=== PATIENT | female | born 1940 | race Caucasian/White ===

== ENCOUNTER 2019-07-01 09:47 | Emergency (ER) | payer OTHER ==
[2019-07-01 10:31] VITALS: PULSE 84; TEMP 97.8
--- NOTE | 2019-07-01 10:44 | PDOC ---
History of Present Illness - History of Present Illness Initial Comments: The pt is an 79F w/ a history of COPD (2L NC), CLL who presents for evaluation of several months of productive cough and 2 days of body aches. She endorses chills at home. She denies fevers, SOB, worsening MATIAS, abdominal pain, N/V/C/D, dysuria, hematuria, or changes in sensation. She endorses receiving the flu vaccine this year She was also evaluated by Pulmonology and GI and is s/p 2 rounds of azithromycin 07/01/19 11:06 <Ck Tipton - Last Filed: 07/01/19 12:04> <Lakshmi Richardson - Last Filed: 07/01/19 12:11> - General Chief Complaint: Respiratory Stated Complaint: COPD Past History - Past Medical History Anemia: No Asthma: No Cancer: No Cardiac Disorders: No CVA: No COPD: Yes CHF: No Dementia: No Diabetes: No GI Disorders: No Disorders: No HTN: No Hypercholesterolemia: No Liver Disease: No Seizures: No Thyroid Disease: No - Surgical History Abdominal Surgery: No Appendectomy: No Cardiac Surgery: No Cholecystectomy: No Lung Surgery: No Neurologic Surgery: No Orthopedic Surgery: Yes (RIGHT FOOT SURGERY) - Psycho Social/Smoking Cessation Hx Smoking History: Former smoker Have you smoked in the past 12 months: No If you are a former smoker, when did you quit?: 23YRS AGO Information on smoking cessation initiated: No Hx Alcohol Use: Yes (1 GLASS OF WINE WITH DINNER) Drug/Substance Use Hx: No Substance Use Type: None Hx Substance Use Treatment: No <Ck Tipton - Last Filed: 07/01/19 12:04> <Lakshmi Richardson - Last Filed: 07/01/19 12:11> - Past Medical History Allergies/Adverse Reactions: Allergies Allergy/AdvReac Type Severity Reaction Status Date / Time No Known Drug Allergies Allergy Verified 07/01/19 10:03 Home Medications: Ambulatory Orders Budesonide/Formeterol Fumarate [SYMBICORT 80/4.5mcg -] 2 inh IH BID 10/13/12 Calcium Carbonate/Vitamin D3 [Calcarb 600 with Vit D Tab] 1 each PO DAILY Multivit-Min/FA/Lycopene/Lut [Centrum Silver Tablet] 1 each PO DAILY 10/13/12 Tiotropium [employer] [Spiriva] 1 inh IH DAILY 10/13/12 Oxycodone HCl/Acetaminophen [Percocet 5-325 mg Tablet] 1 - 2 tab PO Q6H PRN #0 tablet 10/23/12 Oseltamivir Phosphate [Tamiflu -] 75 mg PO BID #10 capsule 07/01/19 Review of Systems - Review of Systems Able to Perform ROS?: Yes Comments:: GENERAL/CONSTITUTIONAL: No fever. No weakness HEAD, EYES, EARS, NOSE AND THROAT: No change in vision. No change in hearing. No sore throat CARDIOVASCULAR: No chest pain RESPIRATORY: +cough GASTROINTESTINAL: No nausea, vomiting, diarrhea or constipation GENITOURINARY: No dysuria, frequency, or change in urination MUSCULOSKELETAL: No joint or muscle swelling or pain. No neck or back pain SKIN: No rash NEUROLOGIC: No headache, vertigo, loss of consciousness, or change in strength/ sensation ENDOCRINE: No increased thirst. No abnormal weight change ALLERGIC/IMMUNOLOGIC: No hives or skin allergy 07/01/19 10:44 Is the patient limited Yi proficient: No <Ck Tipton - Last Filed: 07/01/19 12:04> *Physical Exam - Vital Signs Last Vital Signs Temp Pulse Resp BP Pulse Ox 97.8 F 84 18 104/88 100 07/01/19 10:29 07/01/19 10:42 07/01/19 10:29 07/01/19 10:29 07/01/19 10:42 - Physical Exam GENERAL: Awake, alert, and oriented to person/place/time, in no acute distress HEAD: No signs of trauma, normocephalic, atraumatic EYES: PERRLA, EOMI, sclera anicteric, conjunctiva clear ENT: Hearing grossly normal, nares patent, oropharynx clear without exudates. Moist mucosa LUNGS: No distress, speaks in full sentences, clear to auscultation bilaterally HEART: Regular rate and rhythm, normal S1 and S2, no murmurs appreciated, peripheral pulses normal and equal bilaterally ABDOMEN: Soft, nontender, normoactive bowel sounds. No guarding, no rebound EXTREMITIES: Normal inspection, Normal range of motion, no edema. No clubbing or cyanosis NEUROLOGICAL: Cranial nerves II through XII grossly intact. Normal speech, normal gait, no focal sensorimotor deficits SKIN: Warm, Dry 07/01/19 10:44 <Ck Tipton - Last Filed: 07/01/19 12:04> - Vital Signs Last Vital Signs Temp Pulse Resp BP Pulse Ox 97.8 F 84 18 104/88 100 07/01/19 10:29 07/01/19 10:46 07/01/19 10:29 07/01/19 10:29 07/01/19 10:46 <Lakshmi Richardson - Last Filed: 07/01/19 12:11> ED Treatment Course - RADIOLOGY Chest X-Ray Result: No Infiltrates Radiograph Interpretation: 07/01/19 12:11 Interpreted by ED Physician: CXR (2 view): no acute abnormality: no infiltrates , bones appear intact and structures normal alignment, cardiac silhouette within normal limits. no free air under diaphragm, no pneumothorax. - Medications Given in the ED: ED Medications Discontinued Medications Generic Name Dose Route Start Last Admin Trade Name Freq PRN Reason Stop Dose Admin Albuterol/Ipratropium 1 amp 07/01/19 11:15 07/01/19 11:21 Duoneb - NEB 07/01/19 11:16 1 amp Q15M KAYE Administration <Lakshmi Richardson - Last Filed: 07/01/19 12:11> Medical Decision Making - Medical Decision Making The pt is an 79F w/ a history of COPD and CLL who presents for evaluation of chronic cough and 2 days of myalgias/chills Ddx: COPD exacerbation, PNA, viral syndrome/influenza, CHF, pleurisy ED Course CXR Influenza swab Pt is flu A positive Given time frame and comorbidities, will treat with Tamiflu for 5 days Pt non-toxic appearing and not currently febrile or in respiratory distress Plan for D/C w/ PCP f/u Discharge instructions and return precautions given Patient in agreement and verbalized understanding Dispo: Home 07/01/19 12:05 <Ck Tipton - Last Filed: 07/01/19 12:04> Discharge - Discharge Information Problems reviewed: Yes - Admission No <Ck Tipton - Last Filed: 07/01/19 12:04> <Lakshmi Richardson - Last Filed: 07/01/19 12:11> - Discharge Information Clinical Impression/Diagnosis: Influenza A Condition: Stable Disposition: HOME - Additional Discharge Information Prescriptions: Oseltamivir Phosphate [Tamiflu -] 75 mg PO BID #10 capsule - Follow up/Referral Referrals: Donavan Tripp MD [Staff Physician] - Noel Troncoso MD, MD [Primary Care Provider] - - Patient Discharge Instructions Patient Printed Discharge Instructions: DI for Chronic Obstructive Pulmonary Disease, DI for Influenza -- Adult Additional Instructions: You were seen in the Emergency Department today and found to have influenza ( the flu). Review the handout provided at discharge. Wash your hands frequently and avoid young children, elderly, and those with poor immune systems ( immunocompromised). A prescription for Tamiflu was sent to your pharmacy. Take twice a day for 5 days. Follow up with your primary care doctor within a week. Return to the Emergency Department if you develop fevers despite Tylenol use, chest pain, trouble breathing, worsening symptoms, or any new/concerning symptoms. RESPIRATORY salt water gargles, 1-2 spoonful of honey and warm lemon tea is appropriate as well for soothing qualities for sore throat/cough. minimize spread of infection given contagious nature, and cover your mouth and wash your hands adequately with soap and water. Stay well hydrated and rest. Cool air - walk around outdoors in the evening. May also try hot shower steam. This can alleviate the congestion and cough. You can also use Riccola - dual action with lemon/honey to soothe your throat and cough. May use the albuterol inhaler every 4-6 hours as needed for cough and breathing to clear up your airways. Return precautions include respiratory distress, difficulty breathing, cyanosis , chest pain, lethargy, confusion, dehydration, high fevers or pain. - Post Discharge Activity
[2019-07-01] MEDS ORDERED: ALBUTEROL SO4 2.5/IPRATROPIUM 0.5 INH SOL 3 ML VIAL.NEB. NEB ONE (11:09)
[2019-07-01] MEDS ORDERED: ALBUTEROL SO4 2.5/IPRATROPIUM 0.5 INH SOL 3 ML VIAL.NEB. NEB SCH (11:15)
[2019-07-01] MEDS ORDERED: OSELTAMIVIR PHOSPHATE 75 MG CAPSULE PO ONE (11:43)
--- NOTE | 2019-07-01 12:01 | PDOC ---
Attending Attestation - Resident Resident Name: Ck Tipton - ED Attending Attestation I have performed the following: I have examined & evaluated the patient, The case was reviewed & discussed with the resident, I agree w/resident's findings & plan - HPI HPI: 07/01/19 11:58 79F w/ a history of COPD (2L NC) and CLL on oral chemotherapy presenting with persistent cough x several months last 2 days, she started experiencing generalized malaise and body aches no fever, SOB, chest pain, n/v/d, dizziness or syncope/AMS. received flu shot this year She was also evaluated by Pulmonology and GI and is s/p 2 rounds of azithromycin already previously finished course of steroids for her COPD with her renal medicine physician Dr Tripp 07/01/19 12:02 07/01/19 12:12 - Physicial Exam PE: 07/01/19 12:07 Agree with the resident's HPI and PE as documented in the electronic medical record. NAD, well appearing, EOMI, PERRL, nl conjunctiva, anicteric; neck supple. lungs diminished breath sounds bilaterally, poor effort, no wheeze, no rhonchi, RRR, abdomen soft nontender. no rebound, guarding. Back nontender. PLUMMER x4, no focal neuro deficits. No peripheral edema. normal color for ethnicity, WWP. no calf tenderness - Medical Decision Making 07/01/19 12:07 Vital Signs Temp Pulse Resp BP Pulse Ox 97.8 F 84 18 104/88 100 07/01/19 10:29 07/01/19 10:46 07/01/19 10:29 07/01/19 10:29 07/01/19 10:46 Vital signs within normal limits, afebrile, normotensive. Normal respirations, saturations greater than 92%, on supplemental oxygen as needed 2 L at home. diff diagnosis includes pneumonia, COPD exacerbation, CHF, viral syndrome, influenza, pleurisy, bronchitis. No evidence of pneumonia, no PTX on CXR.. Patient was given albuterol nebulizer x1 for her COPD/cough. Influenza positive given less than 2 days of myalgia complaints, patient also has milder symptoms due to her flu shot vaccination status this year. Given her immunosuppressed state, on oral chemo agents for her CLL as well as COPD/chronic lung disease, will benefit from Tamiflu so will provide 5 days. Patient instructed on proper hand hygiene handwashing, minimizing contacts with very young children as well as elderly and immunocompromised patients. Family members with immunocompromise status, , age are than 65 or other significant risk factors for complications of the flu are instructed to get chemo Prophylaxis with their primary doctor Instructions on supportive care, adequate hydration, use of her inhalers to be compliant for her COPD regimen, as needed nasal cannula for supplemental oxygen , salt water gargles, warm honey/lemon drops, tea and other supportive measures to help with the cough. avoid close contacts, and flu precautions. Pt to be discharged in stable condition. Patient and family made aware of clinical impression, treatment recommendations and disposition plan, return precautions discussed (including but not limited to new or persistent/worsening symptoms, pain, fevers, or signs of infection, chest pain, respiratory distress , inability to tolerate oral intake, dehydration, syncope, or neurologic changes ). Follow up with PMD and/or specialist as recommended, follow up information provided, take medications as instructed for duration of time. continue with supportive care, avoid triggers and precipitants. All questions answered to patient's satisfaction and expressed understanding and comfort with this. At the time of discharge, the patient is alert, clinically improved, tolerating po and verbalizes understanding of instructions, satisfied with the care received and felt comfortable with the plan. Patient does not suffer from an acute life- threatening medical condition at this time and is safe for outpatient follow- up. 07/01/19 12:14 07/01/19 12:14 Heart Score/ECG Review #1 ECG reviewed & interpreted by me at: 10:30 General ECG Interpretation: Sinus Rhythm, Normal Rate, Normal Intervals 07/01/19 12:13 Sinus rhythm at 77 bpm, nonspecific T wave abnormalities, narrow complex QRS, no ST elevations or depressions.
[2019-07-01 12:15] VITALS: BP 105/82
[2019-07-01] MEDS ORDERED: OSELTAMIVIR PHOSPHATE 75 MG CAPSULE ONE (12:17)
--- NOTE | 2019-07-02 11:32 | EKG ---
Test Reason : Blood Pressure : / mmHG Vent. Rate : 077 BPM Atrial Rate : 077 BPM P-R Int : 142 ms QRS Dur : 084 ms QT Int : 380 ms P-R-T Axes : 090 027 074 degrees QTc Int : 430 ms NORMAL SINUS RHYTHM NORMAL ECG WHEN COMPARED WITH ECG OF 13-OCT-2012 09:49, T WAVE VARIATION Confirmed by LIBAN MIRELES MD ([id number]) on 07/02/2019 11:32:26 AM Referred By: Confirmed By:LIBAN MIRELES MD
== END 2019-07-01 12:27 | disposition home or self-care (01) ==
LOC: JER 09:47
PROC: 3E0F7GC Introduction of Other Therapeutic Substance into Respiratory Tract, Via Natural or Artificial Opening (ICD-10-PCS; principal; 2019-07-01)
DX: J09.X2 Influenza due to identified novel influenza A virus with other respiratory manifestations (principal); J44.9 Chronic obstructive pulmonary disease, unspecified; Z85.6 Personal history of leukemia
CPT/HCPCS: 71046-TC-FY; 87804; 93005; 93010; 99283-25